=== PATIENT | male | born 1985 | race Two or more races ===

== ENCOUNTER 2018-09-27 00:38 | Emergency (ER) | payer SELFPAY ==
[~2018-09-27] VITALS: Ht 167.6 cm; Wt 72.6 kg
[2018-09-27 01:27] VITALS: BP 0/0
[2018-09-27] MEDS ORDERED: EPINEPHrine HCL 1 MG/10 ML SYRG IV ONE (17:25)
[2018-09-27] MEDS ORDERED: CALCIUM CHLOR(10%) 100MG/ML 10ML SYRINGE IV ONE (17:25)
[2018-09-27] MEDS ORDERED: SODIUM BICARBONATE 8.4% INJ 50ML SYRINGE IV ONE (17:26)
== END 2018-09-27 00:46 | disposition expired ==
LOC: ER 00:38 → EDBD 00:38 → ER 00:46
DX: I46.9 Cardiac arrest, cause unspecified (principal); S21.102A Unspecified open wound of left front wall of thorax without penetration into thoracic cavity, initial encounter; S31.109A Unspecified open wound of abdominal wall, unspecified quadrant without penetration into peritoneal cavity, initial encounter; S71.101A Unspecified open wound, right thigh, initial encounter; W34.00XA Accidental discharge from unspecified firearms or gun, initial encounter; Y93.89 Activity, other specified; Y99.8 Other external cause status; Y92.89 Other specified places as the place of occurrence of the external cause
CPT/HCPCS: 92950; 99285; J0171